=== PATIENT | male | born 1995 | race Caucasian/White ===

== ENCOUNTER 2020-12-05 20:03 | Emergency (ER) | payer SELFPAY ==
[~2020-12-05] VITALS: Ht 180.3 cm; Wt 68.2 kg
[2020-12-05] MEDS ORDERED: CEPHALEXIN MONOHYDRATE 500 MG CAPSULE PO ONE (22:15)
[2020-12-05] MEDS ORDERED: IBUPROFEN 600 MG TABLET PO ONE (22:15)
[2020-12-05 22:59] VITALS: BP 120/77
== END 2020-12-05 23:05 | disposition home or self-care (01) ==
LOC: EMS 20:05
DX: B07.0 Plantar wart (principal)
CPT/HCPCS: 99283